=== PATIENT | male | born 1960 | race Two or more races ===

== ENCOUNTER 2025-05-24 13:07 | Inpatient (IN) | payer MEDICARE, MEDICAID ==
[~2025-05-24] VITALS: Ht 157.5 cm; Wt 70.1 kg
--- NOTE | 2025-05-24 13:36 | ECG ---
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
[2025-05-24] MEDS: PANTOPRAZOLE 40 MG/10 ML VIAL INJ IV ONE (14:30)
--- NOTE | 2025-05-24 14:35 | ED.PDOC ---
History of Present Illness HPI Comments This is a 65-year-old gentleman who comes in with chief complaint of black stool as well as hematemesis. The patient states that yesterday he had no symptoms but today he developed some abdominal pain and had a very large soft black stool with vomiting of some coffee-ground emesis. The patient states that he vomited several times so he came to the emergency department's for evaluation. The patient is complaining of some mild shortness for breath. He does have a history of alcohol abuse and states that his last alcohol use was approximately 1 hour prior to arrival in the emergency department Chief Complaint: GI Bleed Time Seen by MD: 13:11 Reviewed Notes: Nurses Notes, Medications, Allergies (No allergies to medications) Allergies: Coded Allergies: NO KNOWN ALLERGIES (Unverified , 05/24/25) Information Source: Patient Mode of Arrival: Ambulatory Severity: Moderate Timing: Hours Duration: Since onset Prehospital treatment: None Location: Generalized abdominal pain Associated signs and symptoms Associated hematemesis as well as coffee-ground diarrhea Past Medical History PAST MEDICAL HISTORY: HTN Past Medical History (Other): The patient has a left inguinal hernia Surgical History (Other): Right thumb amputation, left wrist surgery Family History Family History: No family hx of Cancer, No family hx of DM, No family hx of Heart magdalene Social History Smoker: Non-Smoker Alcohol: Heavy Drugs: Denies Drug Use Lives In: Home Constitutional: denies: chills, diaphoresis, fatigue, fever, malaise, sweats, weakness, others EENTM: denies: blurred vision, double vision, ear bleeding, ear discharge, ear drainage, ear pain, ear ringing, eye pain, eye redness, hearing loss, mouth pain, mouth swelling, nasal discharge, nose bleeding, nose congestion, nose pain, photophobia, tearing, throat pain, throat swelling, voice changes, others Respiratory: denies: cough, hemoptysis, orthopnea, SOB at rest, shortness of breath, SOB with excertion, stridor, wheezing, others Cardiovascular: denies: chest pain, dizzy spells, diaphoresis, Dyspnea on exertion, edema, irregular heart beat, left arm pain, lightheadedness, palpitations, PND, syncope, others Gastrointestinal: reports: abdominal pain, diarrhea, hematemesis, others (Black stools); denies: abdomen distended, blood streaked bowels, constipated, dysphagia, difficulty swallowing, melena, nausea, poor appetite, poor fluid intake, rectal bleeding, rectal pain, vomiting Genitourinary: denies: burning, dysuria, flank pain, frequency, hematuria, incontinence, penile discharge, penile sore, pain, testicle pain, testicle swelling, urgency, others Neurological: denies: dizziness, fainting, headache, left sided numbness, left sided weakness, numbness, paresthesia, pre-existing deficit, right sided numbness, right sided weakness, seizure, speech problems, tingling, tremors, weakness, others Musculoskeletal: denies: back pain, gout, joint pain, joint swelling, muscle pain, muscle stiffness, neck pain, others Integumetry: denies: bruises, change in color, change in hair/nails, dryness, laceration, lesions, lumps, rash, wounds, others Allergic/Immunocompromised: denies: Difficulty Healing, Frequent Infections, Hives, Itching, others Hematologic/Lymphatic: denies: anemia, blood clots, easy bleeding, easy bruising, swollen glands, others Endocrine: denies: excessive hunger, excessive sweating, excessive thirst, excessive urination, flushing, intolerance to cold, intolerance to heat, unexplained weight gain, unexplained weight loss, others Psychiatric: denies: anxiety, bipolar disorder, depression, hopeless, panic disorder, schizophrenia, sleepless, suicidal, others Physical Exam General Appearance: Moderate Distress HEENT: Pharynx Normal, Scleral Icterus (L), Scleral Icterus (R), TMs Normal Neck: Full Range of Motion, Non-Tender, Normal, Normal Inspection Respiratory: Chest Non-Tender, Lungs Clear, No Accessory Muscle Use, No Respiratory Distress, Normal Breath Sounds Cardiovascular: No Edema, No JVD, No Murmur, No Gallop, Normal Peripheral Pulses, Regular Rate/Rhythm Breast Exam: Deferred Gastrointestinal: Distended, Hepatomegaly, No Pulsatile Mass, Normal Bowel Sounds, Soft, Tenderness Genitalia: Deferred Pelvic: Deferred Rectal: Deferred Extremities: No calf tenderness, Normal capillary refill, No pedal edema Musculoskeletal : Apperance: Normal Neurologic: Alert, dumper mold cleaner II-XII nml as Tested, No Motor Deficits, Normal Affect, Normal Mood, No Sensory Deficits Cerebellar Function: Normal Reflexes: Normal Skin: Dry, Pallor, Warm Lymphatic: No Adenopathy Was a procedure done? Was a procedure done?: No Differential Dx Considerations may include: Upper GI bleed, lower GI bleed, cirrhosis X-Ray, Labs, Meds, VS Vital Signs Date Time Temp Pulse Resp B/P (MAP) Pulse Ox O2 Delivery O2 Flow Rate FiO2 05/24/25 14:49 98.4 118 16 140/73 (95) 99 98.4 05/24/25 14:49 118 16 97 Room Air* 0 21 05/24/25 13:19 119 05/24/25 13:09 98.1 121 20 139/79 100 98.1 Lab Test 05/24/25 15:35 05/24/25 14:55 Range/Units Urine Color Light-yellow Yellow Urine Clarity Clear Clear Urine pH 5.0 5.0-9.0 Urine Specific [place] 1.017 1.001-1.035 Urine Protein Negative Negative Urine Ketones 2+ H Negative Urine Blood Negative Negative /uL Urine Nitrite Negative Negative Urine Bilirubin Negative Negative Urine Urobilinogen Normal Negative mg/dL Urine Leukocyte Esterase Negative Negative /uL Urine RBC <1 0 - 3 /hpf Urine Microscopic WBC < 1 0-3 /HPF Urine Squamous Epithelial Cells Few <5 /hpf Urine Bacteria None seen None Seen /hpf Urine Mucus Few None Seen Urine Glucose Normal Normal mg/dL White Blood Count 13.9 H 4.4-10.8 10^3/uL Red Blood Count 2.96 L 4.5-5.90 10^6/uL Hemoglobin 9.5 L 13.5-17.5 g/dL Hematocrit 28.4 L 41.0-53.0 % Mean Corpuscular Volume 95.9 80.0-100.0 fL Mean Corpuscular Hemoglobin 32.0 28.0-32.0 pg Mean Corpuscular Hemoglobin Concent 33.4 32.0-36.0 g/dL Red Cell Distribution Width 16.8 H 11.8-14.3 % Platelet Count 118 L 140-450 10^3/uL Mean Platelet Volume 9.6 6.9-10.8 fL Neutrophils (%) (Auto) 85.9 H 37.0-80.0 % Lymphocytes (%) (Auto) 7.7 L 10.0-50.0 % Monocytes (%) (Auto) 5.5 0.0-12.0 % Eosinophils (%) (Auto) 0.0 0.0-7.0 % Basophils (%) (Auto) 0.9 0.0-2.0 % Neutrophils # (Auto) 11.9 H 1.6-8.6 10 ^3/uL Lymphocytes # (Auto) 1.1 0.4-5.4 10 ^3/uL Monocytes # (Auto) 0.8 0-1.3 10 ^3/uL Eosinophils # (Auto) 0 0-0.8 10 ^3/uL Basophils # (Auto) 0.1 0-0.2 10 ^3/uL Nucleated Red Blood Cells 0.0 % Prothrombin Time 15.1 H 9.3-11.8 sec Prothrombin Time INR 1.48 H 0.9-1.15 Activated Partial Thromboplast Time 32.5 24.5-34.5 SEC Sodium Level 137 136-145 mmol/L Potassium Level 4.8 3.5-5.1 mmol/L Chloride Level 102 98-107 mmol/L Carbon Dioxide Level 16 L 20-31 mmol/L Anion Gap 19 H 5-15 Blood Urea Nitrogen 21 9-23 mg/dL Creatinine 0.66 L 0.700-1.30 mg/dL Glomerular Filtration Rate Calc 104 >90 mL/min BUN/Creatinine Ratio 31.8 H 10.0-20.0 Serum Glucose 118 H 74-106 mg/dL Calcium Level 8.0 L 8.7-10.4 mg/dL Total Bilirubin 1.8 H 0.2-1.0 mg/dL Aspartate Amino Transferase (AST) 93 H 13-40 U/L Alanine Aminotransferase (ALT) 29 7-40 U/L Alkaline Phosphatase 173 H 46-116 U/L Total Protein 7.9 5.7-8.2 g/dL Albumin 3.2 3.2-4.8 g/dL Lipase 42 12-53 U/L Plasma/Serum Blood Alcohol 32.6 H <10 mg/dL Current Medications Medications (Trade) Dose Ordered Sig/Leta Route Start Time Stop Time Status Last Admin Pantoprazole Sodium (Protonix) 40 mg ONCE ONCE IV 05/24/25 14:30 05/24/25 14:31 DC 05/24/25 14:30 IV Hep-Lock was established The patient was given Protonix 40 mg IV push The patient's CBC shows anemia with a hemoglobin of 9.5 and hematocrit of 28.4 The chemistry panel is within normal limits except for hypocalcemia The patient's total bilirubin is elevated at 1.8 At this time, the patient is being admitted with a diagnosis of GI bleed The patient understands and agrees with the management The patient was typed and screened Images Reviewed?: Images reviewed and evaluated by me Time of 1ST Reevaluation: 14:35 Reevaluation 1ST: Unchanged Patient Education/Counseling: Diagnosis, Treatment, Prognosis Family Education/Counseling: No Family Present SEPSIS Sepsis Screen Date sepsis recognized/suspect: May 24, 2025 Time Sepsis recognized/suspect: 1309 Recent Procedure: No On Antibiotic Therapy: No Respiratory Rate >20: No Heart Rate >90: Yes Temp<36 C (96.8 F) or >38.3 C: No SBP <90 or MAP <65 mmHG: No New Acute Mental Status Change: No Is the patient on CPAP, BIPAP,: No Physician Orders Ct Ab Pel Wo Con-No Oral Or Iv (05/24/25 14:19) Heplock Iv (05/24/25 14:19) Hris Specialist (05/24/25 14:19) Blood Pressure (05/24/25 14:19) Pulse Oximetry (05/24/25 14:19) Type And Screen (05/24/25 14:19) Vital Signs Date Time Temp Pulse Resp B/P (MAP) Pulse Ox O2 Delivery O2 Flow Rate FiO2 05/24/25 14:49 98.4 118 16 140/73 (95) 99 98.4 05/24/25 14:49 118 16 97 Room Air* 0 21 05/24/25 13:19 119 05/24/25 13:09 98.1 121 20 139/79 100 98.1 Laboratory Tests Test 05/24/25 14:55 White Blood Count 13.9 10^3/uL (4.4-10.8) H Medications Medications Dose Ordered Sig/Leta Route Start Time Stop Time Status Last Admin Dose Admin Pantoprazole Sodium 40 mg ONCE ONCE IV 05/24/25 14:30 05/24/25 14:31 DC 05/24/25 14:30 Departure 1 Departure Time of Disposition: 16:16 Impression: Primary Impression: Upper GI bleed Additional Impression: Intractable abdominal pain Disposition: ADMITTED INPATIENT Admit to: Med Surg Condition: Fair Critical Care Note Critical Care Time?: No Stability Stability form required: Yes Unstable for transfer: ED Physician Assesment (Clinical assesment) Heart Score Heart Score: Heart Score Response (Comments) Value History N/A 0 EKG N/A 0 Age N/A 0 Risk Factors N/A 0 Troponin N/A 0 Total 0 TODD TOMLINSON MD May 24, 2025 14:35
[2025-05-24 14:49] VITALS: PULSE 118; RESP 16; O2SAT 97
[2025-05-24 15:18] LABS: Hematocrit 28.4 % (41.0-53.0); Hemoglobin 9.5 g/dL (13.5-17.5); Mean Corpuscular Hemoglobin 32.0 pg (28.0-32.0); Mean Corpuscular Volume 95.9 fL (80.0-100.0); Nucleated Red Blood Cells % 0.0 %
--- NOTE | 2025-05-24 15:27 | DVH ---
Exam: CT CT AB PEL WO CON-NO ORAL OR IV History: pain Comparison Study: None Technique: Multidetector spiral CT of the abdomen was performed from lung bases to pubic symphysis. I maging was performed without IV contrast. Axial, coronal and sagittal multiplanar reformats were obta ined from the axial data set by the technologist. Radiation Dose : 1. Abdomen/Pelvis: CTDIvol 8.0 mGy, DLP 767.08 mGy*cm. Findings: Evaluation of solid organs is limited due to lack of intravenous contrast use. Lung Bases: Cardiomegaly. Coronary artery calcifications. Vascular calcifications of the aorta. Liver: Hepatic cirrhosis. Hepatomegaly. Gallbladder and Biliary Tree: Cholelithiasis noted without secondary findings of cholecystitis or юлия iary obstruction. Spleen: Unremarkable Pancreas: The pancreas is grossly normal in appearance. Adrenal Glands: Unremarkable Kidneys: Kidneys are grossly normal without calculi or hydronephrosis. Bladder: Grossly unremarkable for degree of distention. Bowel: Moderate hiatal hernia. Diverticulosis. Distended stomach. Moderate diffuse bowel wall thicken ing. The appendix is not visualized; however, no secondary findings of acute appendicitis identified. Ascites: Small volume ascites. Lymphadenopathy: No mesenteric, retroperitoneal or periportal lymphadenopathy. Abdominal Wall and Mesentery: Moderate left and small right fat containing inguinal hernia. Vasculature: The visualized abdominal aorta is normal in size and caliber. There is extensive athero sclerotic calcification of the aorta and its branches. Evaluation of abdominal and pelvic vessels is limited due to lack of intravenous contrast. Pelvic Organs: Unremarkable Musculoskeletal: No aggressive focal bony lesions, acute fractures or dislocation. IMPRESSION: Hepatic cirrhosis and hepatomegaly with small volume perihepatic ascites. Diverticulosis. Moderate left and small right fat containing inguinal hernias. Moderate colonic bowel wall thickening is nonspecific and may represent edema. Distended stomach. Moderate hiatal hernia. Cholelithiasis without secondary signs of cholecystitis or biliary obstruction.
[2025-05-24 15:28] LABS: Alanine Aminotransferase 29 U/L (7-40); Albumin 3.2 g/dL (3.2-4.8); Alkaline Phosphatase 173 U/L (46-116); Anion Gap 19 (5-15); BUN/Creatinine Ratio 31.8 (10.0-20.0); Bilirubin, Total 1.8 mg/dL (0.2-1.0); Blood Urea Nitrogen 21 mg/dL (9-23); Calcium 8.0 mg/dL (8.7-10.4); Carbon Dioxide 16 mmol/L (20-31); Chloride 102 mmol/L (98-107); Glucose 118 mg/dL (74-106); Lipase 42 U/L (12-53); Potassium 4.8 mmol/L (3.5-5.1); Sodium 137 mmol/L (136-145); Total Protein 7.9 g/dL (5.7-8.2)
[2025-05-24 15:32] LABS: INR 1.48 (0.9-1.15); Partial Thromboplastin Time 32.5 SEC (24.5-34.5); Prothrombin Time 15.1 sec (9.3-11.8)
[2025-05-24 16:10] LABS: Urine Protein, UAD Negative (Negative)
[2025-05-24] MEDS ORDERED: ONDANSETRON HCL 4 MG/2 ML VIAL IV PRN (19:15)
[2025-05-24] MEDS: SODIUM CHLORIDE 0.9% 1,000 ML IV SCH (19:15)
[2025-05-24 19:50] VITALS: PULSE 150; RESP 24; O2SAT 99
[2025-05-24] MEDS: LABETALOL HCL 20 MG/4 ML VL IV ONE (21:22)
[2025-05-24] MEDS: PANTOPRAZOLE 40 MG/10 ML VIAL INJ IV SCH (22:12)
[2025-05-25] VITALS (10 sets, daily range): BP systolic 133–162; BP diastolic 59–93; PULSE 85–118; RESP 11–20; TEMP 97.6–98.9; O2SAT 95–100
[2025-05-25] MEDS ORDERED: LORazepam 2MG/ML-1ML VIAL IV PRN (02:45)
--- NOTE | 2025-05-25 02:51 | DVHHP2 ---
History of Present Illness Reason for Visit: GI bleed History of Present Illness 65-year-old male presents for evaluation of GI bleed. Patient reports having multiple episodes of dark stool and dark emesis. He also reports lower abdominal pain. Denies chest pain or shortness for breath. No dizziness. Reports drinking alcohol daily. No other acute complaints reported. Past Medical History Hypertension Past Surgical History Right thumb amputation Family History Noncontributory Smoke: No ALCOHOL: heavy Drugs: None Lives: with Family Review of Systems Review of Systems Review of systems are currently negative otherwise addressed in HPI. Allergies: Coded Allergies: NO KNOWN ALLERGIES (Unverified , 05/24/25) Medications Current Medications Medications Dose Ordered Sig/Leta Route Start Time Stop Time Status Last Admin Dose Admin Pantoprazole Sodium 40 mg BID IV 05/24/25 22:00 05/24/25 22:12 40 MG Sodium Chloride 1,000 ml @ 100 mls/hr Q10H IV 05/24/25 19:15 05/24/25 19:15 100 MLS/HR Ondansetron HCl 4 mg Q4HP PRN IV 05/24/25 19:15 Exam Vital Signs Vital Signs Date Time Temp Pulse Resp B/P (MAP) Pulse Ox O2 Delivery O2 Flow Rate FiO2 05/25/25 02:00 98.4 110 20 145/73 (97) 96 98.4 05/24/25 19:50 Nasal Cannula* 2 28 Exam Gen: 65-year-old male in mild distress Skin: Warm, dry, normal color and texture, no rash. HEENT: Normocephalic atraumatic, mucous membranes moist and pink. Neck: Cervical and supraclavicular nodes normal without enlargement, trachea is midline, thyroid gland is normal without masses. Pulmonary: Clear to auscultation and percussion bilaterally. Cardiac: Regular rate and rhythm. No murmur Abdomen: Soft, nontender, nondistended, bowel sounds present all 4 quadrants, no guarding, no rigidity, no organomegaly. Extremities: No cyanosis, clubbing, no edema Neuro: Cranial nerves II through XII grossly intact, normal affect and speech, no focal motor deficits. Labs/Xrays ORDERING PHYSICIAN: TODD TOMLINSON MD PROCEDURE(s): ABPL - CT AB PEL WO CON-NO ORAL OR IV REASON: pain ORDER NUMBER(s): [id number], ACCESSION NUMBER(s): [id number] Exam: CT CT AB PEL WO CON-NO ORAL OR IV History: pain Comparison Study: None Technique: Multidetector spiral CT of the abdomen was performed from lung bases to pubic symphysis. Imaging was performed without IV contrast. Axial, coronal and sagittal multiplanar reformats were obtained from the axial data set by the technologist. Radiation Dose : 1. Abdomen/Pelvis: CTDIvol 8.0 mGy, DLP 767.08 mGy*cm. Findings: Evaluation of solid organs is limited due to lack of intravenous contrast use. Lung Bases: Cardiomegaly. Coronary artery calcifications. Vascular calcifications of the aorta. Liver: Hepatic cirrhosis. Hepatomegaly. Gallbladder and Biliary Tree: Cholelithiasis noted without secondary findings of cholecystitis or biliary obstruction. Spleen: Unremarkable Pancreas: The pancreas is grossly normal in appearance. Adrenal Glands: Unremarkable Kidneys: Kidneys are grossly normal without calculi or hydronephrosis. Bladder: Grossly unremarkable for degree of distention. Bowel: Moderate hiatal hernia. Diverticulosis. Distended stomach. Moderate diffuse bowel wall thickening. The appendix is not visualized; however, no secondary findings of acute appendicitis identified. Ascites: Small volume ascites. Lymphadenopathy: No mesenteric, retroperitoneal or periportal lymphadenopathy. Abdominal Wall and Mesentery: Moderate left and small right fat containing inguinal hernia. Vasculature: The visualized abdominal aorta is normal in size and caliber. There is extensive atherosclerotic calcification of the aorta and its branches. Evaluation of abdominal and pelvic vessels is limited due to lack of intravenous contrast. Pelvic Organs: Unremarkable Musculoskeletal: No aggressive focal bony lesions, acute fractures or dislocation. IMPRESSION: Hepatic cirrhosis and hepatomegaly with small volume perihepatic ascites. Diverticulosis. Moderate left and small right fat containing inguinal hernias. Moderate colonic bowel wall thickening is nonspecific and may represent edema. Distended stomach. Moderate hiatal hernia. Cholelithiasis without secondary signs of cholecystitis or biliary obstruction. Labs Test 05/24/25 15:35 05/24/25 14:55 Range/Units Urine Color Light-yellow Yellow Urine Clarity Clear Clear Urine pH 5.0 5.0-9.0 Urine Specific [place] 1.017 1.001-1.035 Urine Protein Negative Negative Urine Ketones 2+ H Negative Urine Blood Negative Negative /uL Urine Nitrite Negative Negative Urine Bilirubin Negative Negative Urine Urobilinogen Normal Negative mg/dL Urine Leukocyte Esterase Negative Negative /uL Urine RBC <1 0 - 3 /hpf Urine Microscopic WBC < 1 0-3 /HPF Urine Squamous Epithelial Cells Few <5 /hpf Urine Bacteria None seen None Seen /hpf Urine Mucus Few None Seen Urine Glucose Normal Normal mg/dL White Blood Count 13.9 H 4.4-10.8 10^3/uL Red Blood Count 2.96 L 4.5-5.90 10^6/uL Hemoglobin 9.5 L 13.5-17.5 g/dL Hematocrit 28.4 L 41.0-53.0 % Mean Corpuscular Volume 95.9 80.0-100.0 fL Mean Corpuscular Hemoglobin 32.0 28.0-32.0 pg Mean Corpuscular Hemoglobin Concent 33.4 32.0-36.0 g/dL Red Cell Distribution Width 16.8 H 11.8-14.3 % Platelet Count 118 L 140-450 10^3/uL Mean Platelet Volume 9.6 6.9-10.8 fL Neutrophils (%) (Auto) 85.9 H 37.0-80.0 % Lymphocytes (%) (Auto) 7.7 L 10.0-50.0 % Monocytes (%) (Auto) 5.5 0.0-12.0 % Eosinophils (%) (Auto) 0.0 0.0-7.0 % Basophils (%) (Auto) 0.9 0.0-2.0 % Neutrophils # (Auto) 11.9 H 1.6-8.6 10 ^3/uL Lymphocytes # (Auto) 1.1 0.4-5.4 10 ^3/uL Monocytes # (Auto) 0.8 0-1.3 10 ^3/uL Eosinophils # (Auto) 0 0-0.8 10 ^3/uL Basophils # (Auto) 0.1 0-0.2 10 ^3/uL Nucleated Red Blood Cells 0.0 % Prothrombin Time 15.1 H 9.3-11.8 sec Prothrombin Time INR 1.48 H 0.9-1.15 Activated Partial Thromboplast Time 32.5 24.5-34.5 SEC Sodium Level 137 136-145 mmol/L Potassium Level 4.8 3.5-5.1 mmol/L Chloride Level 102 98-107 mmol/L Carbon Dioxide Level 16 L 20-31 mmol/L Anion Gap 19 H 5-15 Blood Urea Nitrogen 21 9-23 mg/dL Creatinine 0.66 L 0.700-1.30 mg/dL Glomerular Filtration Rate Calc 104 >90 mL/min BUN/Creatinine Ratio 31.8 H 10.0-20.0 Serum Glucose 118 H 74-106 mg/dL Calcium Level 8.0 L 8.7-10.4 mg/dL Total Bilirubin 1.8 H 0.2-1.0 mg/dL Aspartate Amino Transferase (AST) 93 H 13-40 U/L Alanine Aminotransferase (ALT) 29 7-40 U/L Alkaline Phosphatase 173 H 46-116 U/L Total Protein 7.9 5.7-8.2 g/dL Albumin 3.2 3.2-4.8 g/dL Lipase 42 12-53 U/L Plasma/Serum Blood Alcohol 32.6 H <10 mg/dL SEPSIS Sepsis Screen Date sepsis recognized/suspect: May 24, 2025 Time Sepsis recognized/suspect: 1999 Recent Procedure: No On Antibiotic Therapy: No Respiratory Rate >20: No Heart Rate >90: Yes Temp<36 C (96.8 F) or >38.3 C: No SBP <90 or MAP <65 mmHG: No New Acute Mental Status Change: No Is the patient on CPAP, BIPAP,: No Physician Orders Admit (05/24/25 19:00) * Gi Dvh Car Designer (05/24/25 19:02) Stool Occult Blood (05/24/25 19:02) Gastric Occult Blood (05/24/25 19:02) Pantoprazole (Protonix) (05/24/25 22:00) Sodium Chloride 0.9% (05/24/25 19:15) Ondansetron Hcl (Zofran) (05/24/25 19:15) Complete Blood Count (05/25/25 04:00) Comprehensive Metabolic Panel (05/25/25 04:00) Npo (Nothing By Mouth) Diet (05/25/25 Breakfast) Condition: Stable (05/24/25 19:02) Bedrest With Bathroom Privileg (05/24/25 19:02) Lorazepam 2mg/Ml Inj (Ativan Inj) (05/25/25 02:45) Vital Signs Date Time Temp Pulse Resp B/P (MAP) Pulse Ox O2 Delivery O2 Flow Rate FiO2 05/25/25 02:00 98.4 110 20 145/73 (97) 96 98.4 05/25/25 00:00 112 14 133/73 (93) 95 05/25/25 00:00 97 05/24/25 21:22 122 147/83 05/24/25 19:50 150 24 99 Nasal Cannula* 2 28 05/24/25 19:50 98.1 150 24 139/69 (92) 99 98.1 Laboratory Tests Test 05/24/25 14:55 White Blood Count 13.9 10^3/uL (4.4-10.8) H Medications Medications Dose Ordered Sig/Leta Route Start Time Stop Time Status Last Admin Dose Admin Labetalol HCl 10 mg ONCE ONCE IV 05/24/25 21:00 05/24/25 21:10 DC 05/24/25 21:22 10 MG Pantoprazole Sodium 40 mg BID IV 05/24/25 22:00 05/24/25 22:12 40 MG Sodium Chloride 1,000 ml @ 100 mls/hr Q10H IV 05/24/25 19:15 05/24/25 19:15 100 MLS/HR Assessment/Plan Assessment/Plan Assessment GI bleed Hypertension Anemia Transaminitis Possible liver cirrhosis secondary to alcohol abuse Plan Admit the patient to [facility] to the hospitalist GI consult NPO Maintenance IV fluids Protonix drip Continue treatment per orders. Plan discussed with: Patient My Orders Orders - OMID GIANG Procedure Category Date Status Time Admit ADMIT 05/24/25 Transmitted 19:00 * Gi Dvh Car Designer CONS 05/24/25 Transmitted 19:02 Stool Occult Blood LAB 05/24/25 Logged 19:02 Gastric Occult Blood LAB 05/24/25 Logged 19:02 Pantoprazole PHA 05/24/25 In Process (Protonix) 22:00 Sodium Chloride 0.9% PHA 05/24/25 In Process 19:15 Ondansetron Hcl PHA 05/24/25 In Process (Zofran) 19:15 Complete Blood Count LAB 05/25/25 Logged 04:00 Comprehensive LAB 05/25/25 Logged Metabolic Panel 04:00 Npo (Nothing By DIET 05/25/25 Transmitted Mouth) Diet Breakfast Condition: Stable [place]UNCAN 05/24/25 In Process 19:02 Bedrest With Bathroom [place]AN 05/24/25 In Process Privileg 19:02 Lorazepam 2mg/Ml Inj PHA 05/25/25 Transmitted (Ativan Inj) 02:45 Date of Service: May 24, 2025 Billing Provider: OMID GIANG Common Visit Codes: [id number] INP/OBS CARE (HIGH) OMID GIANG May 25, 2025 02:51
[2025-05-25 06:25] LABS: Hematocrit 25.5 % (41.0-53.0); Hemoglobin 8.4 g/dL (13.5-17.5); Mean Corpuscular Hemoglobin 31.6 pg (28.0-32.0); Mean Corpuscular Volume 95.5 fL (80.0-100.0); Nucleated Red Blood Cells % 0.1 %
[2025-05-25 06:41] LABS: Alanine Aminotransferase 28 U/L (7-40); Anion Gap 9 (5-15); BUN/Creatinine Ratio 32.8 (10.0-20.0); Blood Urea Nitrogen 19 mg/dL (9-23); Carbon Dioxide 27 mmol/L (20-31); Chloride 106 mmol/L (98-107); Glucose 105 mg/dL (74-106); Potassium 3.7 mmol/L (3.5-5.1); Sodium 142 mmol/L (136-145); Total Protein 7.6 g/dL (5.7-8.2)
[2025-05-25 06:45] LABS: Albumin 3.1 g/dL (3.2-4.8); Alkaline Phosphatase 130 U/L (46-116); Bilirubin, Total 1.7 mg/dL (0.2-1.0); Calcium 7.8 mg/dL (8.7-10.4)
[2025-05-25] MEDS ORDERED: AMLO1TAB22 PO (09:46)
[2025-05-25 11:26] LABS: Hepatitis B Surface Antigen Negative (Negative); Hepatitis C Antibody Negative (Negative)
--- NOTE | 2025-05-25 13:14 | DVHINCON2 ---
GI Consult Consult Note GI consult note Date of Consultation: 05/25/2025 Chief Complaint: GI bleed Referring Physician: Manjit ELIZABETH H&P: 65-year-old male admitted with complains of melena and hematemesis. No abdominal pain. Patient admits to having coffee-ground emesis 4 times yesterday. Also black stool for two days. Patient admits to drinking alcohol about 524 oz beer cans every day. No EGD in past. No blood thinners Past Medical History: HTN, left inguinal hernia Past Surgical History: Right thumb amputation, left wrist surgery Social History: NO smoking, heavy drinking ETOH Family History: Noncontributory Review of Systems: Constitutional: no fever, chill, weight loss HEENT: no eye pain, no hearing loss, no oral lesion, no scleral icterus Heart: no chest pain, no chest pressure Lung: no cough, no dyspnea with exertion Abdomen: see HPI Physical exam: General: NAD, AAOX3 Chest: lung adan clear to auscultation Heart: RRR, no murmur Abdomen: non-distended, no tenderness to palpation, +BS Labs: Labs Test 05/25/25 06:05 05/24/25 15:35 05/24/25 14:55 05/24/25 08:53 Range/Units White Blood Count 13.7 H 4.4-10.8 10^3/uL Red Blood Count 2.67 L 4.5-5.90 10^6/uL Hemoglobin 8.4 L 13.5-17.5 g/dL Hematocrit 25.5 #L 41.0-53.0 % Mean Corpuscular Volume 95.5 80.0-100.0 fL Mean Corpuscular Hemoglobin 31.6 28.0-32.0 pg Mean Corpuscular Hemoglobin Concent 33.1 32.0-36.0 g/dL Red Cell Distribution Width 17.0 H 11.8-14.3 % Platelet Count 91 L 140-450 10^3/uL Mean Platelet Volume 9.9 6.9-10.8 fL Neutrophils (%) (Auto) 71.9 37.0-80.0 % Lymphocytes (%) (Auto) 17.1 10.0-50.0 % Monocytes (%) (Auto) 9.8 0.0-12.0 % Eosinophils (%) (Auto) 0.4 0.0-7.0 % Basophils (%) (Auto) 0.8 0.0-2.0 % Neutrophils # (Auto) 9.8 H 1.6-8.6 10 ^3/uL Lymphocytes # (Auto) 2.3 0.4-5.4 10 ^3/uL Monocytes # (Auto) 1.3 0-1.3 10 ^3/uL Eosinophils # (Auto) 0.1 0-0.8 10 ^3/uL Basophils # (Auto) 0.1 0-0.2 10 ^3/uL Nucleated Red Blood Cells 0.1 % Sodium Level 142 # 136-145 mmol/L Potassium Level 3.7 3.5-5.1 mmol/L Chloride Level 106 98-107 mmol/L Carbon Dioxide Level 27 # 20-31 mmol/L Anion Gap 9 5-15 Blood Urea Nitrogen 19 9-23 mg/dL Creatinine 0.58 L 0.700-1.30 mg/dL Glomerular Filtration Rate Calc 108 >90 mL/min BUN/Creatinine Ratio 32.8 H 10.0-20.0 Serum Glucose 105 74-106 mg/dL Calcium Level 7.8 L 8.7-10.4 mg/dL Total Bilirubin 1.7 H 0.2-1.0 mg/dL Aspartate Amino Transferase (AST) 97 H 13-40 U/L Alanine Aminotransferase (ALT) 28 7-40 U/L Alkaline Phosphatase 130 H 46-116 U/L Total Protein 7.6 5.7-8.2 g/dL Albumin 3.1 L 3.2-4.8 g/dL Hepatitis A IgM Antibody Negative Hepatitis B Surface Antigen Negative Negative Hepatitis B Core IgM Antibody Negative Negative Hepatitis C Antibody Negative Negative Urine Color Light-yellow Yellow Urine Clarity Clear Clear Urine pH 5.0 5.0-9.0 Urine Specific [place] 1.017 1.001-1.035 Urine Protein Negative Negative Urine Ketones 2+ H Negative Urine Blood Negative Negative /uL Urine Nitrite Negative Negative Urine Bilirubin Negative Negative Urine Urobilinogen Normal Negative mg/dL Urine Leukocyte Esterase Negative Negative /uL Urine RBC <1 0 - 3 /hpf Urine Microscopic WBC < 1 0-3 /HPF Urine Squamous Epithelial Cells Few <5 /hpf Urine Bacteria None seen None Seen /hpf Urine Mucus Few None Seen Urine Glucose Normal Normal mg/dL Prothrombin Time 15.1 H 9.3-11.8 sec Prothrombin Time INR 1.48 H 0.9-1.15 Activated Partial Thromboplast Time 32.5 24.5-34.5 SEC Lipase 42 12-53 U/L Plasma/Serum Blood Alcohol 32.6 H <10 mg/dL Imaging: CT abdomen pelvis IMPRESSION: Hepatic cirrhosis and hepatomegaly with small volume perihepatic ascites. Diverticulosis. Moderate left and small right fat containing inguinal hernias. Moderate colonic bowel wall thickening is nonspecific and may represent edema. Distended stomach. Moderate hiatal hernia. Cholelithiasis without secondary signs of cholecystitis or biliary obstruction. Assessment: GI bleed Liver cirrhosis Moderate hiatal hernia Cholelithiasis Heavy alcohol use Plan: Discussed with Dr. Caraballo - Pt will be scheduled for an EGD today 05/25/2025. Pt was informed of the risks (bleeding, infection, perforation, reaction to sedation medications and cardiopulmonary arrest) and benefit and is agreeable to undergo the procedures. Alcohol cessation discussed extensively Further recommendations to follow procedure Plan discussed with patient family at bedside and RN Thank you for this consultation Date of Service: May 25, 2025 Billing Provider: CUATE CONTRERAS Common Visit Codes: CONSULT ONLY Consultation Codes: [id number] CONSULT <60MIN CUATE CONTRERAS May 25, 2025 13:14
[2025-05-25] MEDS ORDERED: PROPOFOL 10 MG/ML 20 ML IV ONE (13:31)
[2025-05-25] MEDS ORDERED: fentaNYL CITRATE 100 MCG/2 ML VL ONE (13:31)
--- NOTE | 2025-05-25 13:51 | DVH ---
EXAM: XY CHEST PORTABLE HISTORY: pre op TECHNIQUE: 1 view of the chest COMPARISON: None FINDINGS/IMPRESSION: LUNGS: No pleural effusion, consolidation, or pneumothorax MEDIASTINUM: Unremarkable BONES: No acute osseous abnormality OTHER: None
--- NOTE | 2025-05-25 14:10 | DVHOP2 ---
Operative Report DATE OF OPERATION: 05/25/25 PROCEDURE: Upper Endoscopy with biopsy. PREOPERATIVE INDICATION: The patient is a 65 -year-old male undergoing endoscopy for GI bleed POSTOPERATIVE DIAGNOSES: 1. 1+ distal esophageal varices which flattened with insufflation and no stigmata of recent bleeding 2. 2-3 cm sliding-type hiatal hernia with no significant erosive esophagitis 3. Moderate portal hypertension gastropathy with some hyperemia erythema more prominent in the proximal stomach 4. Otherwise normal examination up to the 2nd and 3rd part of the duodenal with good bile drainage and no fresh or old blood in the upper GI tract PROCEDURE PERFORMED BY: Jessica Caraballo GI NURSE: Jade SCOPE: Olympus videoendoscope. ASA CLASS: 3 PREOPERATIVE MEDICATIONS: Dr. María Elena Clemens PROCEDURE IN DETAIL: After obtaining an informed consent, the patient was placed on left lateral decubitus position. The patient was then sedated with the above medications. A bite block was placed between his teeth. The endoscope was then passed through the oropharynx, into the esophagus, and through the stomach and pylorus up to the second and third part of the duodenum. The endoscope was then withdrawn. The 2nd and 3rd part of the duodenal and the duodenal bulb were normal. Duodenal biopsies were obtained The pre-pyloric area and antrum showed mild gastritis. On retroflexion and straight on view the patient had moderate portal hypertension gastropathy with hyperemia erythema more prominent in the proximal esophagus. There was no gastric varices. Gastric biopsies were obtained. The endoscope was then withdrawn into distal esophagus where the patient had a 3 cm sliding-type hiatal hernia with no esophagitis He had 1+ distal esophageal varices which flattened with insufflation without stigmata of recent bleeding The patient tolerated the procedure well without difficulty. COMPLICATIONS : None SPECIMENS: Duodenal biopsies Gastric biopsies DISPOSITION: Transfer back to the floor Stable PLAN: 1. Await for biopsy result 2. Will place pt on Protonix 40 mg bid 3. Carafate 1 g p.o. twice a day 4. DC aspirin NSAIDs smoking alcohol 5. Advance diet as tolerated 6. Outpatient follow up with GI Services for ongoing management of chronic liver disease JESSICA CARABALLO MD May 25, 2025 14:10
--- NOTE | 2025-05-25 17:12 | DVHPNRES ---
Progress Note Date Seen: May 25, 2025 Resident Creating Document: KHALIF CODY RESIDENT Medical Necessity Reason Pt with a Central, PICC or Fol: No Subjective Review of Systems 65-year-old male presents for evaluation of GI bleed. Patient reports having multiple episodes of dark stool and dark emesis. He also reports lower abdominal pain. Denies chest pain or shortness for breath. No dizziness. Reports drinking alcohol daily. No other acute complaints reported. Past Medical History Hypertension Past Surgical History Right thumb amputation Family History Noncontributory Smoke: No ALCOHOL: heavy Drugs: None Lives: with Family 05/25/2025 interval events: The patient reports having 4-5 episodes of black stools, he reports having weakness while going to the restroom. He denies any chest pain, shortness of breath, hematemesis, fever or any other complaints today. Objective vital signs Vital Sign Date Time Temp Pulse Resp B/P (MAP) Pulse Ox O2 Delivery O2 Flow Rate FiO2 05/25/25 17:04 97.6 85 18 160/83 (108) 99 97.6 05/25/25 14:07 96 05/25/25 14:07 Room Air 05/25/25 08:00 2 Total Intake and Output 05/24/25 05/24/25 05/25/25 15:00 23:00 07:00 Intake Total 230 ml Balance 230 ml medications Current Medications Medications Dose Ordered Sig/Leta Route Start Time Stop Time Status Last Admin Dose Admin Pantoprazole Sodium 40 mg BID IV 05/24/25 22:00 05/25/25 09:44 40 MG Ondansetron HCl 4 mg Q4HP PRN IV 05/24/25 19:15 Lorazepam 0.5 mg Q12HP PRN IV 05/25/25 02:45 Examination Pt is lying on bed General Appearance: Alert, Oriented X3, Cooperative, Mild distress HEENT: Icteric, Atraumatic, Mucous membranes moist/pink Respiratory: Clear to auscultation, Normal air movement, No added sounds Cardiovascular: Regular rate, Normal S1, Normal S2, No murmurs Abdominal/ : Active bowel sounds, Soft, no distention, right upper and epigastric tenderness Extremities: No edema, Normal pulses, No tenderness/swelling Skin: No Significant rash, except past surgical scars Neuro: Normal speech, sensorimotor deficits none Psych/Mental Status: Mental status NL, Mood NL Nurse was there as field research assistant during examination laboratory and microbiology Laboratory Tests 05/25/25 06:05 Test 05/25/25 06:05 Range/Units Serum Glucose 105 74-106 mg/dL Labs and/or images reviewed: Labs reviewed by me, Image(s) reviewed by me (RN) Problem List/Assessment/Plan Problem List/Assessment/Plan Assessment #Upper GI Bleeding: melena #Alcohol induced liver cirrhosis Maddrey's Discriminant Function for Alcoholic Hepatitis 20,6 Meld Na 13 #Heavy alcohol use #Distal esophageal varices, no actively bleeding #Erosive esophagitis #Portal hypertension gastropathy #Thrombocytopenia due to hypersplenism #Hypertension #H/o right thumb amputation #Diverticulosis #Biliteral inguinal hernias #Hiatal Hernia #Cholelithiasis #Transaminitis due to liver disease #Anemia, normocytic normochromic #Leukocytosis, no SIRS Results: Endoscopy:1+ distal esophageal varices which flattened with insufflation and no stigmata of recent bleeding. 2-3 cm sliding-type hiatal hernia with no significant erosive esophagitis. Moderate portal hypertension gastropathy with some hyperemia erythema more prominent in the proximal stomach. Otherwise normal examination up to the 2nd and 3rd part of the duodenal with good bile drainage and no fresh or old blood in the upper GI tract. CT abdomen pelvis: Hepatic cirrhosis and hepatomegaly with small volume perihepatic ascites. Diverticulosis. Distended stomach. Moderate hiatal hernia. Cholelithiasis. No cholecystitis. The left and small right facet containing hernia. Hepatitis panel ordered Plan: Clear liquid diet Await biopsy results, Protonix 40 mg b.i.d. Carafate 1 g p.o. twice a day Avoid aspirin, NSAIDs, smoking, alcohol Advanced diet as tolerated Outpatient follow up with GI services for ongoing management of chronic liver disease Patient will be started on ciprofloxacin 500 mg daily for SBP prophylaxis No DVT prophylaxis due to thrombocytopenia Goals of care discussed with the patient for more than 27 minutes: Full code status Case discussed with , patient and RN Cosigned by Dr Solares, PGY2, Resident Plan discussed with: Patient, Other (RN) KHALIF CODY May 25, 2025 17:12 KHALIF URIOSTEGUI May 26, 2025 06:54
[2025-05-25] MEDS: MELATONIN 5 MG TAB PO ONE (22:25)
[2025-05-26] VITALS (7 sets, daily range): BP systolic 123–146; BP diastolic 63–89; PULSE 61–95; RESP 17–18; TEMP 97.7–98.7; O2SAT 95–100
[2025-05-26 06:32] LABS: Hematocrit 23.6 % (41.0-53.0); Hemoglobin 8.0 g/dL (13.5-17.5); Mean Corpuscular Hemoglobin 32.3 pg (28.0-32.0); Mean Corpuscular Volume 95.1 fL (80.0-100.0); Nucleated Red Blood Cells % 0.2 %
[2025-05-26 06:58] LABS: Alanine Aminotransferase 26 U/L (7-40); Alkaline Phosphatase 98 U/L (46-116); Anion Gap 9 (5-15); BUN/Creatinine Ratio 24.1 (10.0-20.0); Blood Urea Nitrogen 14 mg/dL (9-23); Carbon Dioxide 24 mmol/L (20-31); Glucose 87 mg/dL (74-106); Sodium 140 mmol/L (136-145); Total Protein 7.0 g/dL (5.7-8.2)
[2025-05-26 06:59] LABS: Albumin 2.8 g/dL (3.2-4.8); Bilirubin, Total 1.5 mg/dL (0.2-1.0); Calcium 7.6 mg/dL (8.7-10.4); Chloride 107 mmol/L (98-107); Potassium 3.4 mmol/L (3.5-5.1)
--- NOTE | 2025-05-26 07:29 | ECG ---
[facility] Test Date: 2025-05-25 Test Time: 13:16:37 Pat Name: OMID RONDON Department: Respiratoy Room: 0218 B Gender: M Auction Assistant: HIREN : [id number] Requested By: KHALIF HOBSON Order Number: [id number] Reading MD: Chip Blue Measurements Intervals [place] Rate: 95 P: -2 [place]: 147 QRS: 5 QRSD: 106 T: 77 QT: 380 QTc: 478 Interpretive Statements Sinus rhythm LVH with secondary repolarization abnormality Borderline prolonged QT interval Baseline wander in lead(s) V3 Electronically Signed On 05-26-2025 13:10:15 PDT by Chip Blue Please click the below link to view image of tracing.
[2025-05-26 08:17] LABS: Magnesium 2.0 mg/dL (1.6-2.6)
[2025-05-26] MEDS: SUCRALFATE 1 GM TAB PO SCH (09:31)
[2025-05-26] MEDS: CIPROFLOXACIN HCL 500 MG TAB PO ONE (09:31)
[2025-05-26] MEDS: POTASSIUM CHL 20MEQ/100ML 100 ML IV SCH (09:34)
[2025-05-26] MEDS: PANTOPRAZOLE 40 MG TAB PO SCH (16:49)
--- NOTE | 2025-05-26 18:45 | DVHPNRES ---
Progress Note Date Seen: May 26, 2025 Resident Creating Document: KHALIF CODY RESIDENT Medical Necessity Reason Pt with a Central, PICC or Fol: No Subjective Review of Systems 65-year-old male with history of hypertension, hepatic cirrhosis, diverticulosis, hiatal hernia, cholelithiasis presents to the ER due to hematemesis and melena. Patient reports having multiple episodes of dark stool and dark emesis. He also reports lower abdominal pain. Denies chest pain or shortness for breath. No dizziness. Reports drinking alcohol daily. No other acute complaints reported. Past Medical History Hypertension Past Surgical History Right thumb amputation Family History Noncontributory Smoke: No ALCOHOL: heavy Drugs: None Lives: with Family 05/26/2025 interval events: The patient reports having three episodes of dark stools, not tarry black.He denies any chest pain, shortness of breath, hematemesis, fever or any other complaints today. Objective vital signs Vital Sign Date Time Temp Pulse Resp B/P (MAP) Pulse Ox O2 Delivery O2 Flow Rate FiO2 05/26/25 17:00 98.0 61 18 123/89 (100) 95 98.0 05/26/25 08:21 Room Air* 0 21 Total Intake and Output 05/25/25 05/25/25 05/26/25 15:00 23:00 07:00 Intake Total 50 ml 350 ml 800 ml Balance 50 ml 350 ml 800 ml medications Current Medications Medications Dose Ordered Sig/Leta Route Start Time Stop Time Status Last Admin Dose Admin Ondansetron HCl 4 mg Q4HP PRN IV 05/24/25 19:15 Lorazepam 0.5 mg Q12HP PRN IV 05/25/25 02:45 Sucralfate 1 gm BID PO 05/26/25 10:00 05/26/25 09:31 1 GM Pantoprazole Sodium 40 mg BID@0600,1700 PO 05/26/25 17:00 05/26/25 16:49 40 MG Examination Pt is lying on bed General Appearance: Alert, Oriented X3, Cooperative, Mild distress HEENT: Atraumatic, Mucous membranes moist/pink Respiratory: Clear to auscultation, Normal air movement, No added sounds Cardiovascular: Regular rate, Normal S1, Normal S2, No murmurs Abdominal/ : Active bowel sounds, Soft, no distention, no tenderness Extremities: No edema, Normal pulses, No tenderness/swelling, right thumb amputation Skin: No Significant rash, except past surgical scars Neuro: Normal speech, sensorimotor deficits none Psych/Mental Status: Mental status NL, Mood NL Nurse was there as tab card press operator during examination laboratory and microbiology Laboratory Tests 05/26/25 06:06 Test 05/26/25 06:06 Range/Units Serum Glucose 87 74-106 mg/dL Problem List/Assessment/Plan Problem List/Assessment/Plan #Upper GI Bleeding secondary to esophageal varices #Heavy alcohol use #Distal esophageal varices due to portal hypertension, no actively bleeding #Erosive esophagitis #Portal hypertension gastropathy Endoscopy:1+ distal esophageal varices which flattened with insufflation and no stigmata of recent bleeding. 2-3 cm sliding-type hiatal hernia with no significant erosive esophagitis. Moderate portal hypertension gastropathy with some hyperemia erythema more prominent in the proximal stomach. Otherwise normal examination up to the 2nd and 3rd part of the duodenal with good bile drainage and no fresh or old blood in the upper GI tract. GI consulted. Await biopsy results, Protonix 40 mg b.i.d. Carafate 1 g p.o. twice a day Avoid aspirin, NSAIDs, smoking, alcohol Diet advanced to soft mechanical diet Outpatient follow up with GI services for ongoing management of chronic liver disease CT abdomen pelvis: Hepatic cirrhosis and hepatomegaly with small volume perihepatic ascites. Diverticulosis. Distended stomach. Moderate hiatal hernia. Cholelithiasis. No cholecystitis. The left and small right facet containing hernia. Hepatitis panel ordered #Alcohol induced liver cirrhosis Maddrey's Discriminant Function for Alcoholic Hepatitis 20,6 Meld Na 13 #Alcohol abuse #Transaminitis #Hypoalbuminemia Monitor labs and signs symptoms for stigmata of chronic liver disease Patient was counseled on cessation of alcohol for more than 15 minutes GI consult done and advised to follow up outpatient with the GI specialist regularly. Hypokalemia Repleted Microcytic hypochromic anemia possibly due to blood loss -monitor labs -consider sending iron panels. Probable hypothyroidism TSH 6.46 -T3-T4 level -repeat thyroid function test after acute illness resolved -follow up with an wet finisher outpatient #Thrombocytopenia due to hypersplenism -monitor labs and avoid drugs causing thrombocytopenia. #Leukocytosis, no SIRS #Hypertension Patient was on amlodipine at home, hold on it due to active bleeding #H/o right thumb amputation #Diverticulosis monitor #Biliteral inguinal hernias no incarcerated, patient should f/u surgery as outpatient #Hiatal Hernia protonix #Cholelithiasis patient should f/u surgery as outpatient GI prophylaxis: Pantoprazole DVT prophylaxis: hold on due to bleeding, SCD instead Diet: Cardiac Goals of care discussed with the patient for more than 27 minutes: Full code status Case discussed with , patient and RN Cosigned by Dr Solares, PGY2, resident Plan discussed with: Patient, Spouse, Other (RN) KHALIF CODY RESIDENT May 26, 2025 18:45 KHALIF URIOSTEGUI May 27, 2025 07:04 ELIJAH FERRELL RESIDENT May 27, 2025 18:37
[2025-05-26 19:27] LABS: Free T4 (Free Thyroxine) 1.12 ng/dL (0.89-1.76)
[2025-05-26] MEDS: MELATONIN 5 MG TAB PO ONE (22:42)
--- NOTE | 2025-05-26 23:02 | DVHPN2 ---
Progress Note - Dictate Date Seen: May 26, 2025 Medical Necessity Reason Pt with a Central, PICC or Fol: No Subjective No new complaints Tolerating soft mechanical diet Two bowel movements recorded vital signs Vital Sign Date Time Temp Pulse Resp B/P (MAP) Pulse Ox O2 Delivery O2 Flow Rate FiO2 05/26/25 21:22 97.9 91 17 128/68 (88) 100 97.9 05/26/25 08:21 Room Air* 0 21 Total Intake and Output 05/25/25 05/25/25 05/26/25 15:00 23:00 07:00 Intake Total 50 ml 350 ml 800 ml Balance 50 ml 350 ml 800 ml medications Current Medications Medications Dose Ordered Sig/Leta Route Start Time Stop Time Status Last Admin Dose Admin Ondansetron HCl 4 mg Q4HP PRN IV 05/24/25 19:15 Lorazepam 0.5 mg Q12HP PRN IV 05/25/25 02:45 Sucralfate 1 gm BID PO 05/26/25 10:00 05/26/25 22:42 1 GM Pantoprazole Sodium 40 mg BID@0600,1700 PO 05/26/25 17:00 05/26/25 16:49 40 MG objective General: NAD, AAOX3 Chest: lung adan clear to auscultation Heart: RRR, no murmur Abdomen: non-distended, no tenderness to palpation, +BS laboratory and microbiology Laboratory Tests 05/26/25 06:06 Test 05/26/25 06:06 Range/Units Serum Glucose 87 74-106 mg/dL Problems(with codes): (1) Esophageal varices determined by endoscopy (2) Portal hypertension (3) Cirrhosis of liver (4) Intractable abdominal pain (5) Upper GI bleed (6) Alcoholic liver disease Prognosis PLAN: 1. Await for biopsy result;check LFTs in am 2. Will place pt on Protonix 40 mg bid 3. Carafate 1 g p.o. twice a day 4. DC aspirin NSAIDs smoking alcohol 5. Advance diet as tolerated 6. Outpatient follow up with GI Services for ongoing management of chronic liver disease Plan discussed with: Other (Dipika Gan) JESSICA GALICIA MD May 26, 2025 23:02
[2025-05-27 01:00] VITALS: BP 144/84; PULSE 94; RESP 18; TEMP 98.2; O2SAT 99
[2025-05-27 05:00] VITALS: BP 120/84; PULSE 91; RESP 18; TEMP 98.6; O2SAT 97
[2025-05-27 06:12] LABS: Hematocrit 25.5 % (41.0-53.0); Hemoglobin 8.5 g/dL (13.5-17.5); Mean Corpuscular Hemoglobin 32.4 pg (28.0-32.0); Mean Corpuscular Volume 97.1 fL (80.0-100.0); Nucleated Red Blood Cells % 0.2 %
[2025-05-27 06:34] LABS: Alanine Aminotransferase 29 U/L (7-40); Anion Gap 10 (5-15); BUN/Creatinine Ratio 16.7 (10.0-20.0); Blood Urea Nitrogen 10 mg/dL (9-23); Carbon Dioxide 22 mmol/L (20-31); Chloride 105 mmol/L (98-107); Glucose 87 mg/dL (74-106); Sodium 137 mmol/L (136-145); Total Protein 7.4 g/dL (5.7-8.2)
[2025-05-27 06:42] LABS: Albumin 3.0 g/dL (3.2-4.8); Alkaline Phosphatase 119 U/L (46-116); Bilirubin, Total 1.6 mg/dL (0.2-1.0); Calcium 7.7 mg/dL (8.7-10.4); Potassium 3.5 mmol/L (3.5-5.1)
[2025-05-27 09:00] VITALS: BP 125/80; PULSE 97; RESP 18; TEMP 99.1; O2SAT 98
--- NOTE | 2025-05-27 11:26 | DVHDSRES ---
Discharge Summary Date of Admission Resident Creating Document: KHALIF CODY RESIDENT May 24, 2025 at 19:00 Date of Discharge: May 27, 2025 Admitting Diagnosis GI bleeding due to esophageal varices and portal hypertensive gastropathy Alcohol-induced liver cirrhosis Portal hypertension with distal esophageal varices Portal hypertensive gastropathy Erosive gastritis Labs/Diagnostic Data: Laboratory Results Test 05/27/25 05:26 05/26/25 06:06 05/25/25 06:05 05/24/25 15:35 White Blood Count 8.8 10^3/uL (4.4-10.8) Red Blood Count 2.63 10^6/uL (4.5-5.90) Hemoglobin 8.5 g/dL (13.5-17.5) Hematocrit 25.5 % (41.0-53.0) Mean Corpuscular Volume 97.1 fL (80.0-100.0) Mean Corpuscular Hemoglobin 32.4 pg (28.0-32.0) Mean Corpuscular Hemoglobin Concent 33.3 g/dL (32.0-36.0) Red Cell Distribution Width 17.1 % (11.8-14.3) Platelet Count 94 10^3/uL (140-450) Mean Platelet Volume 10.1 fL (6.9-10.8) Neutrophils (%) (Auto) 55.3 % (37.0-80.0) Lymphocytes (%) (Auto) 29.0 % (10.0-50.0) Monocytes (%) (Auto) 8.5 % (0.0-12.0) Eosinophils (%) (Auto) 5.2 % (0.0-7.0) Basophils (%) (Auto) 2.0 % (0.0-2.0) Neutrophils # (Auto) 4.9 10 ^3/uL (1.6-8.6) Lymphocytes # (Auto) 2.6 10 ^3/uL (0.4-5.4) Monocytes # (Auto) 0.8 10 ^3/uL (0-1.3) Eosinophils # (Auto) 0.5 10 ^3/uL (0-0.8) Basophils # (Auto) 0.2 10 ^3/uL (0-0.2) Nucleated Red Blood Cells 0.2 % Sodium Level 137 mmol/L (136-145) Potassium Level 3.5 mmol/L (3.5-5.1) Chloride Level 105 mmol/L (98-107) Carbon Dioxide Level 22 mmol/L (20-31) Anion Gap 10 (5-15) Blood Urea Nitrogen 10 mg/dL (9-23) Creatinine 0.60 mg/dL (0.700-1.30) Glomerular Filtration Rate Calc 107 mL/min (>90) BUN/Creatinine Ratio 16.7 (10.0-20.0) Serum Glucose 87 mg/dL (74-106) Calcium Level 7.7 mg/dL (8.7-10.4) Total Bilirubin 1.6 mg/dL (0.2-1.0) Aspartate Amino Transferase (AST) 88 U/L (13-40) Alanine Aminotransferase (ALT) 29 U/L (7-40) Alkaline Phosphatase 119 U/L (46-116) Total Protein 7.4 g/dL (5.7-8.2) Albumin 3.0 g/dL (3.2-4.8) Hemoglobin A1c 5.3 % A1C (<5.7) Phosphorus Level 3.0 mg/dL (2.4-5.1) Magnesium Level 2.0 mg/dL (1.6-2.6) Thyroid Stimulating Hormone (TSH) 6.46 uIU/mL (0.55-4.78) Free Thyroxine (T4) Calculated 1.12 ng/dL (0.89-1.76) Total Triiodothyronine (TT3) 0.89 ng/mL (0.60-1.81) Hepatitis A IgM Antibody Negative Hepatitis B Surface Antigen Negative (Negative) Hepatitis B Core IgM Antibody Negative (Negative) Hepatitis C Antibody Negative (Negative) Urine Color Light-yellow (Yellow) Urine Clarity Clear (Clear) Urine pH 5.0 (5.0-9.0) Urine Specific Aragon 1.017 (1.001-1.035) Urine Protein Negative (Negative) Urine Ketones 2+ (Negative) Urine Blood Negative /uL (Negative) Urine Nitrite Negative (Negative) Urine Bilirubin Negative (Negative) Urine Urobilinogen Normal mg/dL (Negative) Urine Leukocyte Esterase Negative /uL (Negative) Urine RBC <1 /hpf (0 - 3) Urine Microscopic WBC < 1 /HPF (0-3) Urine Squamous Epithelial Cells Few /hpf (<5) Urine Bacteria None seen /hpf (None Seen) Urine Mucus Few (None Seen) Urine Glucose Normal mg/dL (Normal) Test 05/24/25 14:55 05/24/25 08:53 Prothrombin Time 15.1 sec (9.3-11.8) Prothrombin Time INR 1.48 (0.9-1.15) Activated Partial Thromboplast Time 32.5 SEC (24.5-34.5) Lipase 42 U/L (12-53) Plasma/Serum Blood Alcohol 32.6 mg/dL (<10) Stool Occult Blood Positive (Negative) Stool Occult Blood Sample #3 (Negative) Other Laboratory Tests 05/27/25 05:26 Brief Hx & Hospital Course: Dilip Higgins, is a 65-year-old mal who presented to the ER with hematemesis, abdominal pain and melena. Patient says this symptoms started after he binge drinks on Friday. He has had multiple admissions due to the same reason. Denies any other associated symptoms. Past medical history: Hypertension, alcoholic liver cirrhosis with multiple admissions due to decompensated cirrhosis. Surgical history: Right thumb amputation Family history: Noncontributory Social history: Lives with family at home. Ethanol abuse (5-6 beers/daily). Denies current tobacco and other drug abuse Allergies: Denies Home medication: Amlodipine Brief hospital course: Upper GI bleed secondary to esophageal varices responding to NPO, IV pantoprazole and avoiding blood thinners. Completed on admission abdomen and pelvis CT which showed hepatic cirrhosis with hepatomegaly and small volume ascites, diverticulosis and cholelithiasis with no cholecystitis. GI was consulted in completed EGD which showed distal esophageal varices with no recent signs of bleeding, moderate portal hypertensive gastropathy and hiatal hernia. GI specialist indicated to continue with p.o. Protonix, Carafate and avoid NSAIDs, aspirin, alcohol and smoking. Patient tolerated diet and presented no new episodes of vomiting. Due to esophageal varices decided to discontinue amlodipine and replaced with propranolol. Patient hemodynamically stable, asymptomatic, in condition to be discharged home. Was granted under optimal medical therapy, gave advice on healthy lifestyle habits (this includes complete cessation of ethanol abuse), and follow-up with PCP, GI specialist and discharge Clinic. DIAGNOSIS Upper GI Bleed secondary to esophageal varices and erosive esophagitis Distal esophageal varices due to portal hypertension, no actively bleeding Portal hypertension gastropathy Alcohol liver cirrhosis Maddrey's Discriminant Function for Alcoholic Hepatitis 20,6 Meld Na 13 Ethanol abuse - strong cessation discussion for over 16 minutes Transaminitis Hypoalbuminemia Hypokalemia Microcytic hypochromic anemia possibly due to blood loss Sick euthyroid syndrome Thrombocytopenia due to hypersplenism Hypertension H/o right thumb amputation Diverticulosis Biliteral inguinal hernias Hiatal Hernia Cholelithiasis Non adherence Goals of care discussed with patient for over 18 minutes: Full code status Discussed plan with Dr. Minor, patient, family and nurses Physical examination Patient lying in bed, in no acute distress. General Appearance: Alert, Oriented X3, Cooperative, Mild distress HEENT: Atraumatic, Mucous membranes moist/pink Respiratory: Clear to auscultation, Normal air movement, No added sounds Cardiovascular: Regular rate, Normal S1, Normal S2, No murmurs Abdominal/ : Active bowel sounds, Soft, no distention, no tenderness Extremities: No edema, Normal pulses, No tenderness/swelling, right thumb amputated Skin: No Significant rash, except past surgical scars Neuro: Normal speech, sensorimotor deficits none Psych/Mental Status: Mental status NL, Mood NL Nurse was there as jacquard loom card changer during examination Operations or Procedures Endoscopy: 1+ distal esophageal varices, flattened with insufflation, no stigmata of recent bleeding. 2-3 cm sliding-type hiatal hernia. No significant erosive esophagitis. Moderate portal hypertensive gastropathy with hyperemia and erythema, more prominent in the proximal stomach. Examination of the duodenum up to the 2nd and 3rd parts. Good bile drainage. No fresh or old blood visualized in the upper GI tract. Biopsies taken results pending. Exam: CT CT AB PEL WO CON-NO ORAL OR IV History: pain Comparison Study: None Technique: Multidetector spiral CT of the abdomen was performed from lung bases to pubic symphysis. Imaging was performed without IV contrast. Axial, coronal and sagittal multiplanar reformats were obtained from the axial data set by the technologist. Radiation Dose : 1. Abdomen/Pelvis: CTDIvol 8.0 mGy, DLP 767.08 mGy*cm. Findings: Evaluation of solid organs is limited due to lack of intravenous contrast use. Lung Bases: Cardiomegaly. Coronary artery calcifications. Vascular calcifications of the aorta. Liver: Hepatic cirrhosis. Hepatomegaly. Gallbladder and Biliary Tree: Cholelithiasis noted without secondary findings of cholecystitis or biliary obstruction. Spleen: Unremarkable Pancreas: The pancreas is grossly normal in appearance. Adrenal Glands: Unremarkable Kidneys: Kidneys are grossly normal without calculi or hydronephrosis. Bladder: Grossly unremarkable for degree of distention. Bowel: Moderate hiatal hernia. Diverticulosis. Distended stomach. Moderate diffuse bowel wall thickening. The appendix is not visualized; however, no secondary findings of acute appendicitis identified. Ascites: Small volume ascites. Lymphadenopathy: No mesenteric, retroperitoneal or periportal lymphadenopathy. Abdominal Wall and Mesentery: Moderate left and small right fat containing inguinal hernia. Vasculature: The visualized abdominal aorta is normal in size and caliber. There is extensive atherosclerotic calcification of the aorta and its branches. Evaluation of abdominal and pelvic vessels is limited due to lack of intravenous contrast. Pelvic Organs: Unremarkable Musculoskeletal: No aggressive focal bony lesions, acute fractures or dislocation. IMPRESSION: Hepatic cirrhosis and hepatomegaly with small volume perihepatic ascites. Diverticulosis. Moderate left and small right fat containing inguinal hernias. Moderate colonic bowel wall thickening is nonspecific and may represent edema. Distended stomach. Moderate hiatal hernia. Cholelithiasis without secondary signs of cholecystitis or biliary obstruction. ATED BY: ANGEL RAMIREZ MD DICTATED DATE/TIME: 05/24/25 1525 EXAM: XY CHEST PORTABLE HISTORY: pre op TECHNIQUE: 1 view of the chest COMPARISON: None FINDINGS/IMPRESSION: LUNGS: No pleural effusion, consolidation, or pneumothorax MEDIASTINUM: Unremarkable BONES: No acute osseous abnormality OTHER: None ATED BY: DESIRE FRANCO MD DICTATED DATE/TIME: 05/25/25 1349 Condition at Discharge: Stable Final Diagnosis/Problems List Upper GI Bleed secondary to esophageal varices and erosive esophagitis Distal esophageal varices due to portal hypertension, no actively bleeding Portal hypertension gastropathy Alcohol liver cirrhosis Rosa Isela's Discriminant Function for Alcoholic Hepatitis 20,6 Meld Na 13 Ethanol abuse Transaminitis Hypoalbuminemia Hypokalemia Microcytic hypochromic anemia possibly due to blood loss Sick euthyroid syndrome Thrombocytopenia due to hypersplenism Hypertension H/o right thumb amputation Diverticulosis Biliteral inguinal hernias Hiatal Hernia Cholelithiasis Non adherence Discharge Disposition: Home SNF Discharge Will this Physician continue t: Yes Discharge Instruct/Medications Diet: Consistent carbohydrate, Cardiac 2g Na,low cholest Activity: No Restrictions, As Tolerated Follow Up/Referral: Follow-up with PCP in 2 weeks GI specialist Medications: As per EMR Scheduled Pantoprazole Sodium Sesquihydr (Protonix), 40 MG PO DAILY Propranolol HCl (Propranolol Hydrochloride), 20 MG PO BID Sucralfate (Sucralfate), 1 GM PO DAILY Discontinued Medications Amlodipine Besylate (Amlodipine Besylate), 5 MG PO DAILY, (Reported) Discharge Statement: "Patient was advised to return to the ER or call 911 if any headaches, dizziness, shortness of breath, chest pain, abdominal pain, bleeding, fevers, or worsening of medical condition. Patient was counseled about treatment plan, medications, possible side effects, patientverbalized understanding. All questions were answered to the best of my ability. This discharge took greater then 30 minutes in planning, reviewing documentation, counseling the patient, and discussing with other team members." ASSESSMENT ASSESSMENT Assessment Hepatic cirrhosis and hepatomegaly Alcohol abuse Transaminitis Hypoalbuminemia Hypokalemia repleted Microcytic hypochromic anemia possibly due to blood loss Probable hypothyroidism Thrombocytopenia KHALIF CODY RESIDENT May 27, 2025 11:25 ELIJAH FERRELL RESIDENT May 27, 2025 18:54 KHALIF URIOSTEGUI RESIDENT May 30, 2025 06:58
[2025-05-27 13:00] VITALS: BP 124/73; PULSE 92; RESP 20; TEMP 97.9; O2SAT 99
[2025-05-27] MEDS ORDERED: PANT40TA2 PO (15:34)
[2025-05-27] MEDS ORDERED: SUCR1TAB PO (15:34)
[2025-05-27] MEDS ORDERED: PROP1TAB53 PO (15:34)
[2025-05-27 16:53] VITALS: BP 126/74; PULSE 85; RESP 20; TEMP 99.1; O2SAT 100
[2025-05-27 17:18] VITALS: BP 147/83; PULSE 122; TEMP 37.3
--- NOTE | 2025-05-27 21:27 | DVHPN2 ---
Progress Note - Dictate Date Seen: May 27, 2025 (Late entryTime of visit 4:00 p.m.) Medical Necessity Reason Pt with a Central, PICC or Fol: No Subjective No new complaints Tolerating soft mechanical diet Two bowel movements recorded vital signs Vital Sign Date Time Temp Pulse Resp B/P (MAP) Pulse Ox O2 Delivery O2 Flow Rate FiO2 05/27/25 17:18 37.3 122 05/27/25 16:53 20 126/74 (91) 100 05/27/25 08:00 Room Air* 0 21 Total Intake and Output 05/26/25 05/26/25 05/27/25 15:00 23:00 07:00 Intake Total 100 ml 700 ml 540 ml Balance 100 ml 700 ml 540 ml objective General: NAD, AAOX3 Chest: lung adan clear to auscultation Heart: RRR, no murmur Abdomen: non-distended, no tenderness to palpation, +BS laboratory and microbiology Laboratory Tests 05/27/25 05:26 Test 05/27/25 05:26 Range/Units Serum Glucose 87 74-106 mg/dL Problems(with codes): (1) Alcoholic liver disease (2) Esophageal varices determined by endoscopy (3) Cirrhosis of liver (4) Portal hypertension Prognosis Assessment plan Patient has no further episodes of GI bleeding He is tolerating diet Hemoglobin stable at 8.5 Discharge planning is in progress Patient was counseled to maintained on soft diet Maintained on PPI and Carafate DC aspirin NSAIDs smoking alcohol Outpatient follow up with GI Services for ongoing management of chronic liver disease Plan discussed with: Patient JESSICA GALICIA MD May 27, 2025 21:27
== END 2025-05-27 18:30 | disposition home or self-care (01) | DRG 381 ==
LOC: ER 13:07 → OVERFLOW 19:00 → CENTRAL 05-25 02:48
PROVIDERS: ADMIT Student in an Organized Health Care Education/Training Program; ATTEND Student in an Organized Health Care Education/Training Program
PROC: 0DB68ZX Excision of Stomach, Via Natural or Artificial Opening Endoscopic, Diagnostic (ICD-10-PCS; 2025-05-25)
PROC: 0DB98ZX Excision of Duodenum, Via Natural or Artificial Opening Endoscopic, Diagnostic (ICD-10-PCS; principal; 2025-05-25 13:53)
DX: K22.11 Ulcer of esophagus with bleeding (principal); K76.6 Portal hypertension; I85.01 Esophageal varices with bleeding; K29.70 Gastritis, unspecified, without bleeding; K80.20 Calculus of gallbladder without cholecystitis without obstruction; I10 Essential (primary) hypertension; K44.9 Diaphragmatic hernia without obstruction or gangrene; K57.30 Diverticulosis of large intestine without perforation or abscess without bleeding; D69.59 Other secondary thrombocytopenia; K31.89 Other diseases of stomach and duodenum; D73.1 Hypersplenism; K70.30 Alcoholic cirrhosis of liver without ascites; E88.09 Other disorders of plasma-protein metabolism, not elsewhere classified; F10.10 Alcohol abuse, uncomplicated; K70.10 Alcoholic hepatitis without ascites; E87.6 Hypokalemia; E07.81 Sick-euthyroid syndrome; D50.0 Iron deficiency anemia secondary to blood loss (chronic); Z89.011 Acquired absence of right thumb; Z79.899 Other long term (current) drug therapy
CPT/HCPCS: 36415; 43239; 71045; 74176; 80053; 80074; 80320; 81001; 82270; 83036; 83690; 83735; 84100; 84439; 84443; 84480; 85025; 85610; 85730; 86850; 86900; 86901; 93005; 96374; 96375; G0378; J2470; J2704; J3480

== ENCOUNTER 2025-06-25 08:57 | Emergency (ER) | payer MEDICARE, MEDICAID ==
[~2025-06-25] VITALS: Ht 157.5 cm; Wt 64.0 kg
[~2025-06-25 08:57] MED LIST: PANT40TA2 PO; PROP1TAB53 PO; SUCR1TAB PO
--- NOTE | 2025-06-25 10:04 | ED.PDOC ---
Eye-HPI HPI Comments This is a 65-year-old male who comes in with a toothache. Patient states that he has not had dental care in many years since he lost his insurance. His teeth are very bad indicate for a long time. Patient noticed pain on Friday and pain is increased with a lot of swelling in his face. The pain and swelling continues on. No fever no chills no drainage paste patient states very painful when eating. Chief Complaint: Tooth Pain Time Seen by MD: 10:01 Reviewed Notes: Nurses Notes, Medications, Allergies Allergies: Coded Allergies: NO KNOWN ALLERGIES (Unverified , 05/24/25) Home Meds Active Scripts Propranolol HCl (Propranolol Hydrochloride) 20 Mg Tab, 20 MG PO BID for 30 Days, #60 TAB Prov:KHALIF URIOSTEGUI 05/27/25 Sucralfate (Sucralfate) 1 Gm Tab, 1 GM PO DAILY for 30 Days, #30 TAB Prov:KHALIF URIOSTEGUI 05/27/25 Pantoprazole Sodium Sesquihydr (Protonix) 40 Mg Tab, 40 MG PO DAILY for 30 Days, #30 TAB Prov:KHALIF URIOSTEGUI 05/27/25 Information Source: Patient Mode of Arrival: Ambulatory Past Medical History PAST MEDICAL HISTORY: HTN Family History Family History: No family hx of Cancer, No family hx of DM, No family hx of Heart magdalene Social History Smoker: Non-Smoker Alcohol: Heavy Drugs: Denies Drug Use Lives In: Home EENTM: reports: mouth pain, mouth swelling, others (Tooth) All Other Systems: Reviewed and Negative Physical Exam General Appearance: No Apparent Distress, None, Normal HEENT: PERRL/EOMI, Pharynx Normal, Other (Right 1st and molar with excessive decay erythema noted to surrounding tissue cheek is swollen and tender to touch with warmth) Neck: Lymphadenopathy (R), Non-Tender Respiratory: Lungs Clear, Normal Breath Sounds Cardiovascular: Regular Rate/Rhythm Breast Exam: Deferred Gastrointestinal: Non Tender, Normal Bowel Sounds, Soft Genitalia: Deferred Pelvic: Deferred Rectal: Deferred Extremities: Normal inspection, Normal range of motion Neurologic: Alert, Normal Affect, Normal Mood Cerebellar Function: NOT DONE Reflexes: NOT DONE Skin: Dry, Warm Lymphatic: Cervical Adenopathy (R) Was a procedure done? Was a procedure done?: No EENT DIFF Eye: N/A Mouth: Esophageal candidiasis, Herpes Simplex X-Ray, Labs, Meds, VS Vital Signs Date Time Temp Pulse Resp B/P (MAP) Pulse Ox O2 Delivery O2 Flow Rate FiO2 06/25/25 10:09 98.9 72 18 149/68 (95) 99 98.9 06/25/25 10:09 72 18 99 Room Air 06/25/25 08:57 98.4 74 18 155/81 99 98.4 Current Medications Medications (Trade) Dose Ordered Sig/Leta Route Start Time Stop Time Status Last Admin Ketorolac Tromethamine (Toradol Injection) 60 mg ONCE ONCE IM 06/25/25 10:15 06/25/25 10:16 DC 06/25/25 10:19 Ceftriaxone Sodium (Rocephin W Lidocaine IM) 1 gm ONCE ONCE IM 06/25/25 10:45 06/25/25 10:46 DC 06/25/25 10:45 X-Ray, Labs, Meds, VS Comment Patient seen and examined by me. Patient does have cellulitis secondary to poor teeth decay. I will give him a shot of Rocephin here in the ER as well as a shot of Toradol for pain and swelling. Patient will be sent home on oral antibiotics in I talked to him about the urgency of getting his teeth checked for further damage.. Time of 1ST Reevaluation: 10:50 Reevaluation 1ST: Improved Patient Education/Counseling: Diagnosis, Treatment, Prognosis, Need For Follow Up Family Education/Counseling: No Family Present SEPSIS Sepsis Screen Date sepsis recognized/suspect: Jun 25, 2025 Time Sepsis recognized/suspect: 0857 Recent Procedure: No On Antibiotic Therapy: No Respiratory Rate >20: No Heart Rate >90: No Temp<36 C (96.8 F) or >38.3 C: No SBP <90 or MAP <65 mmHG: No New Acute Mental Status Change: No Is the patient on CPAP, BIPAP,: No Vital Signs Date Time Temp Pulse Resp B/P (MAP) Pulse Ox O2 Delivery O2 Flow Rate FiO2 06/25/25 10:09 98.9 72 18 149/68 (95) 99 98.9 06/25/25 10:09 72 18 99 Room Air 06/25/25 08:57 98.4 74 18 155/81 99 98.4 Medications Medications Dose Ordered Sig/Leta Route Start Time Stop Time Status Last Admin Dose Admin Ceftriaxone Sodium 1 gm ONCE ONCE IM 06/25/25 10:45 06/25/25 10:46 DC 06/25/25 10:45 Ketorolac Tromethamine 60 mg ONCE ONCE IM 06/25/25 10:15 06/25/25 10:16 DC 06/25/25 10:19 Departure 1 Departure Time of Disposition: 10:50 Impression: Primary Impression: Tooth decay Additional Impression: Cellulitis, face Disposition: HOME / SELF CARE / HOMELESS Condition: Good Additional Instructions: Please start the oral medicine today when you get home finish all the antibiotic doses until they are all gone Please start taking Motrin tomorrow for pain and swelling You need to go to a dentist JEFFERY to get your teeth repaired If your facial swelling becomes worse you need to come back to the ER for CT scan e-Prescriptions Ibuprofen Micronized (Ibuprofen) 600 Mg Tab 600 MG PO Q6HPRN PRN for 5 Days, #20 TAB Prov: HUI CRUZP 06/25/25 Amoxicillin & Pot Clavulanate (AUGMENTIN TABLET) 875 Mg Tb 875 MG PO BID for 10 Days, #20 TAB Prov: HUI CRUZ 06/25/25 Discharged With: Self Critical Care Note Critical Care Time?: No Stability Stability form required: No HUI CRUZ Jun 25, 2025 10:04
[2025-06-25 10:09] VITALS: BP 149/68; PULSE 72; RESP 18; TEMP 98.9; O2SAT 99
[2025-06-25] MEDS: KETOROLAC TROMETH 60MG/2ML VIAL IM ONE (10:19)
[2025-06-25] MEDS: cefTRIAXone W LIDOCAINE 1 GM IM IM ONE ×2 (10:27→10:45)
[2025-06-25] MEDS: cefTRIAXone SOD 1,000 MG VL ONE (10:28)
[2025-06-25] MEDS ORDERED: AUG875T PO (10:52)
[2025-06-25] MEDS ORDERED: IBUP1TAB5 PO (10:52)
== END 2025-06-25 10:59 | disposition home or self-care (01) ==
LOC: ER 08:57
DX: L03.211 Cellulitis of face (principal); K02.9 Dental caries, unspecified; I10 Essential (primary) hypertension; Z79.899 Other long term (current) drug therapy
CPT/HCPCS: 96372; 99284; J0696; J1885